=== PATIENT | male | born 1965 | race African-American/Black ===

== ENCOUNTER 2016-12-26 18:33 | Emergency (ER) | payer OTHER ==
[~2016-12-26] VITALS: Ht 172.7 cm; Wt 100.0 kg
[~2016-12-26 18:33] MED LIST: MOTRIN800 MG PO; PERCOCET 5/31 TABLET PO
[2016-12-26] MEDS ORDERED: ZOLOFT100 MG PO (19:46)
[2016-12-26] MEDS ORDERED: AMITRIPTYLINE H10 MG PO (19:46)
[2016-12-26] MEDS ORDERED: ENDOCET 5-3251 EACH PO (19:46)
[2016-12-26] MEDS ORDERED: SUMATRIPTAN SU100 MG PO (19:47)
[2016-12-26] MEDS ORDERED: PREDNISONE20 MG PO (19:48)
[2016-12-26 22:10] VITALS: BP 134/90
== END 2016-12-26 22:10 | disposition home or self-care (01) ==
LOC: EME 18:33
DX: R51 Headache (principal); M54.9 Dorsalgia, unspecified; M25.559 Pain in unspecified hip; V43.53XA Car driver injured in collision with pick-up truck in traffic accident, initial encounter; G89.29 Other chronic pain; Z79.891 Long term (current) use of opiate analgesic; Z79.52 Long term (current) use of systemic steroids
CPT/HCPCS: 70450; 93005; 99281; 99284; J3010